=== PATIENT | female | born 1995 | race Caucasian/White ===

== ENCOUNTER 2020-05-26 15:25 | Emergency (ER) | payer OTHER ==
[~2020-05-26] VITALS: Ht 157.5 cm; Wt 108.9 kg
[2020-05-26 15:29] VITALS: Ht 157.5 cm; Wt 108.9 kg
[2020-05-26 18:50] VITALS: BP 106/63
== END 2020-05-26 21:11 | disposition home or self-care (01) ==
LOC: ED 15:25
DX: O26.892 Other specified pregnancy related conditions, second trimester (principal); R10.30 Lower abdominal pain, unspecified; E03.9 Hypothyroidism, unspecified; Z3A.20 20 weeks gestation of pregnancy